=== PATIENT | female | born 1980 | race Caucasian/White ===

== ENCOUNTER 2016-12-10 18:15 | Emergency (ER) | payer MEDICARE, MEDICAID ==
[~2016-12-10] VITALS: Ht 152.4 cm; Wt 63.6 kg
[~2016-12-10 18:15] MED LIST: CITA20TA2 PO
[2016-12-10 18:18] VITALS: BP 111/78; PULSE 78; RESP 16; O2SAT 98
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
== END 2016-12-10 19:20 | disposition home or self-care (01) ==
LOC: SED 18:15
DX: S00.81XA Abrasion of other part of head, initial encounter (principal); S60.511A Abrasion of right hand, initial encounter; S60.512A Abrasion of left hand, initial encounter; W19.XXXA Unspecified fall, initial encounter; Y93.9 Activity, unspecified; Y92.9 Unspecified place or not applicable; Y99.9 Unspecified external cause status; Z88.6 Allergy status to analgesic agent; Z79.899 Other long term (current) drug therapy

== ENCOUNTER 2016-12-30 15:30 | Emergency (ER) | payer MEDICARE, MEDICAID ==
[~2016-12-30] VITALS: Ht 152.4 cm; Wt 56.8 kg
[2016-12-30 15:36] VITALS: BP 104/70; PULSE 78; RESP 14; O2SAT 99
--- NOTE | 2016-12-30 15:58 | ED.REPORT ---
HPI-URI / Cough / Cold Date of Service December 30, 2016 ED Provider: History of Present Illness: feeling tired, hot, no cough or runny nose. works at [employer]. sees some one in [place] for primary care. needs note for work. denies SI or possible harm to others Nursing Notes Stated Complaint: COLD Chief Complaint: FLU/Cold Symptoms Nursing Notes Reviewed: Yes Allergies: Coded Allergies: acetaminophen (Verified Allergy, Unknown, 12/30/16) aspirin (Verified Allergy, Unknown, 12/30/16) Scheduled Citalopram-Expunged Drug, Do Not Renew! (Citalopram-Expunged Drug, Do Not Renew! ) 20 Mg Tablet 20 MG PO DAILY Take 20mg by mouth daily for 2 weeks (start 06/03/13) then take 40mg by mouth daily. General Time Seen by MD: 15:54 Chief Complaint Other Hx Obtained From: Patient Past Medical History Past Medical History none reported Denies: Asthma, Diabetes mellitus Past Surgical History none reported does not want to list surgeries Smoking History Never Smoker Social History Alcohol Use: Denies alcohol use Drug Use: Denies drug use Occupation lives by self, work at [employer] Ambulatory Status Independent Review of Systems Basic Review of Systems Cardiovascular: No chest pain, No dyspnea on exertion, No orthopnea, No parox noct dyspnea, No palpitations Endocrine: No cold intolerance, No heat intolerance, No weight gain, No weight loss Psychiatric: Normal thought content Physical Exam Initial Vital Signs Vital Signs (First) Date Time Temp Pulse Resp B/P Pulse Ox O2 Delivery O2 Flow Rate FiO2 12/30/16 15:36 36.6 78 14 104/70 99 Room Air Initial VS: Reviewed, Vital signs normal Head / Eyes: Atraumatic, Normocephalic, PERRL Neck: Supple, Non-tender, Full range of motion Cardiovascular: Regular rate & rhythm, Heart sounds normal, Intact distal pulses Abdomen / GI: Soft, Non-tender, No guarding, No rebound, No distention Back: No CVA tenderness Lymphatic: No lymphadenopathy Extremities: Vascular intact, Neuro intact, No swelling, No tenderness Skin: Warm, Dry, No cyanosis Neurologic: Alert, Oriented, Nonfocal Psychiatric: Mood/affect normal, Behavior normal, Normal thought content General/Constitutional: Awake, Alert, No acute distress, Well appearing, Well developed, Well hydrated patient with odd presentation. whispers when asked where she works at. Denies any si or HI. States came to the ER to rule out a cold, but no respiratory symptoms ENT: Atraumatic, Airway patent, Mucous membranes moist, Pharynx NL, No peritonsillar abscess Respiratory / Chest: Atraumatic, Breath sounds NL, Breath sounds = bilat, No respiratory distress Cardiovascular: Heart rate NL, Regular rhythm, Heart sounds NL, No gallop Abdomen: Atraumatic, Soft, Non-tender, McBurney's non-tender Re-Eval/Medical Decision Med Decision/Clinical Course Med Decision/Clinical Course: 36 year old female with odd presentation. Cleared to return to work. Encouraged to follow with primary care. no sign of asthma or phargynitis Discharge & Departure Impression: Primary Impression: Well adult health check Disposition: Home Patient Instructions: Heart Healthy Diet (GEN) Additional Instructions: The exam is reassuring. No sign of any abnormalities in your vitals. You are cleared to return to work on 12/31/2016. Note provided for 12/30/2016. Please follow with primary care. Referrals: PHYSICIAN Angelica MERCADO (PCP) EDSupervising Provider for APC: Ruy Damico DO copies to: Angelica PARKS Sue ARNP December 30, 2016 15:58
== END 2016-12-30 16:03 | disposition home or self-care (01) ==
LOC: SED 15:30
DX: Z00.00 Encounter for general adult medical examination without abnormal findings (principal); Z88.6 Allergy status to analgesic agent